=== PATIENT | female | born 1950 | race Caucasian/White ===

== ENCOUNTER → 2021-09-22 | Outpatient (CLI) | payer MEDICARE, SELFPAY ==
--- NOTE | 2021-09-22 11:06 | MRI_ITS ---
EXAM: MR LUMBAR SPINE WITHOUT INTRAVENOUS CONTRAST CLINICAL INDICATION: pain TECHNIQUE: Multiplanar and multisequence MR images of the lumbar spine without intravenous contrast. This report was created using [email or web address] report [employer] technology. COMPARISON: None. FINDINGS: VERTEBRAE: Unremarkable. Vertebral body heights are preserved. Normal vertebral bodies and posterior elements. Normal alignment. No spondylolisthesis. There is preservation of the normal lumbar lordosis. SPINAL CORD: Unremarkable. Normal position and signal intensity of the conus medullaris. The conus medullaris is at T12-L1. SOFT TISSUES: Unremarkable. DISCS/SPINAL CANAL/NEURAL FORAMINA: L1-L2: Unremarkable. Normal disc height and morphology. Normal spinal canal and lateral recesses. Normal neuroforamina. L2-L3: Unremarkable. Normal disc height and morphology. Normal spinal canal and lateral recesses. Normal neuroforamina. L3-L4: Normal disc height but mild left lateral and neural foraminal annular disc bulge and mild neural foraminal stenosis. No spinal stenosis. L4-L5: Moderate disc space narrowing. Slight anterolisthesis of L4 with respect to the L5 roughly 3-4 mm. Moderate annular disc bulge, mild-moderate bilateral neural foraminal stenosis. L5-S1: Unremarkable. Normal disc height and morphology. Normal spinal canal and lateral recesses. Normal neuroforamina. MRI/Spine Lumbar (Routine) IMPRESSION: Mild degenerative changes, including moderate disc space narrowing and annular disc bulge at L4-5 and mild left lateral disc bulge or protrusion at L3-4. No spinal stenosis or suspicious fluid collections. Electronically Signed: Claudia Chua MD at 5:35 EDT ,
== END | disposition home or self-care (01) ==
LOC: MRI 11:06
PROVIDERS: PCP Student in an Organized Health Care Education/Training Program; Referring Provider Orthopaedic Surgery; Visit Provider Orthopaedic Surgery
DX: M43.10 Spondylolisthesis, site unspecified (principal)
CPT/HCPCS: 72148